=== PATIENT | female | born 1990 | race Caucasian/White ===

== ENCOUNTER 2022-11-09 01:47 | Inpatient (IN) | payer BC ==
[2022-11-09 02:42] VITALS: BMI 34.9
[2022-11-09] MEDS ORDERED: Ondansetron PF 4 MG/2 ML Vial IVP PRN ×3 (03:12→11:46)
[2022-11-09] MEDS ORDERED: Promethazine HCl 25 MG/ML VIAL IM PRN ×3 (03:12→11:46)
[2022-11-09] MEDS ORDERED: Tranexamic Acid 1,000 MG/10 ML VIAL IVP PRN (03:12)
[2022-11-09] MEDS ORDERED: Carboprost 250 MCG/ML AMP IM PRN (03:12)
[2022-11-09] MEDS ORDERED: Misoprostol 200 MCG TAB PR PRN (03:12)
[2022-11-09] MEDS ORDERED: hydrALAZINE 20 MG/ML VIAL SLOW IVP PRN ×2 (03:12→11:46)
[2022-11-09] MEDS ORDERED: Lidocaine 1% (PF) 30 ML VIAL SC PRN (03:12)
[2022-11-09] MEDS ORDERED: Ibuprofen 800 MG TAB PO PRN (03:12)
[2022-11-09] MEDS ORDERED: Penicillin G Potassium 5 MILL.UNITS in Sodium Chloride 0.9% 100 ML IVPB SCH (03:15)
[2022-11-09] MEDS ORDERED: Oxytocin 30 units/NS 500 ML 500 ML IV SCH ×2 (03:15)
[2022-11-09 03:30] LABS: Hematocrit 35.8 % (34.9-44.5); Hemoglobin 11.8 g/dL (12.0-15.5); Mean Corpuscular Hemoglobin 29.1 pg (27.0-33.0); Mean Corpuscular Volume 88.4 fl (81.6-98.3); Mean Platelet Volume 12.2 fl (7.4-10.4); Platelet Count 159 10x3/uL (150-450); RBC Distribution Width 14.4 % (11.5-14.5); Red Blood Cell (RBC) Count 4.05 10x6/uL (3.90-5.03); White Blood Cell (WBC) Count 9.1 10x3/uL (3.5-10.5)
[2022-11-09] MEDS: Lactated Ringer's 1,000 ML IV SCH (03:32)
[2022-11-09] MEDS ORDERED: fentaNYL/Ropivacaine Epidural 100 ML ONE (03:45)
[2022-11-09 03:52] LABS: HBSAg Index 0.15 S/CO (0-0.99); Hep B Surf Ag - L&D Non-Reactive S/CO (NonReactive)
[2022-11-09 03:53] LABS: Syphilis Antibody Nonreactive (Nonreactive); Syphilis Antibody Index 0.04 S/CO (<1.00 Non-Reactive)
[2022-11-09] MEDS ORDERED: Moisturizing Cream (Eucerin) 113 GM JAR TOP PRN (04:47)
[2022-11-09] MEDS ORDERED: Acetaminophen 325 MG TAB PO PRN (04:47)
[2022-11-09] MEDS ORDERED: diphenhydrAMINE 50 MG/ML VIAL IVP PRN (04:47)
[2022-11-09] MEDS ORDERED: Naloxone HCl 0.4 mg/ml Vial IVP PRN ×2 (04:47)
[2022-11-09] MEDS ORDERED: ePHEDrine Sulfate 50 MG/10 ML VIAL SLOW IVP PRN (04:47)
[2022-11-09] MEDS ORDERED: Lactated Ringer's 500 ML IV PRN (04:47)
[2022-11-09] MEDS ORDERED: fentaNYL 2 mcg/Ropivacaine 0.2% Epidural 100 ML CADD EPIDURAL SCH (05:00)
[2022-11-09] MEDS ORDERED: Communication Order-Pharmacy FS SCH (05:00)
[2022-11-09] MEDS ORDERED: Dexmedetomidine 200 MCG/2 ML VIAL ONE (05:01)
[2022-11-09] MEDS: Penicillin G 2.5 MILL.units 2.5 MILL.UNITS in Premix Bag 1 BAG IVPB SCH (07:23)
[2022-11-09] MEDS ORDERED: Bupivacaine 0.25% HCL 30 ML VIAL ONE (08:00)
[2022-11-09] MEDS ORDERED: diphenhydrAMINE 25 MG CAP PO PRN (11:46)
[2022-11-09] MEDS ORDERED: Lanolin Ointment 7 GM TUBE TOP PRN (11:46)
[2022-11-09] MEDS ORDERED: HYDROcodone/Acetaminophen 5/325 mg Tablet PO PRN (11:46)
[2022-11-09] MEDS ORDERED: Benzocaine-Menthol 82.5 ML CAN TOP PRN (11:46)
[2022-11-09] MEDS ORDERED: Boostrix 0.5 ML (Tdap) VIAL (>/=7 yrs of age) IM ONE (11:46)
[2022-11-09] MEDS ORDERED: Milk Of Magnesia 30 ML UDCUP PO PRN (11:46)
[2022-11-09] MEDS ORDERED: Bisacodyl 10 MG SUPP PR PRN (11:46)
[2022-11-09] MEDS ORDERED: Preparation H Ointment 28 GM TUBE PR PRN (11:46)
[2022-11-09] MEDS ORDERED: Docusate 100 MG CAP PO SCH (12:00)
[2022-11-09] MEDS ORDERED: Prenatal Vitamin 1 TAB PO SCH (12:00)
[2022-11-09] MEDS: Docusate 100 MG CAP PO SCH (14:25)
[2022-11-09] MEDS: Ibuprofen 800 MG TAB PO SCH ×2 (14:25→21:28)
[2022-11-09] MEDS: Ferrous Sulfate 325 MG TAB PO SCH (19:34)
[2022-11-10] MEDS: Lactated Ringer's 1,000 ML IV SCH (01:03)
[2022-11-10] MEDS: Penicillin G 2.5 MILL.units 2.5 MILL.UNITS in Premix Bag 1 BAG IVPB SCH (01:03)
[2022-11-10] MEDS: Ibuprofen 800 MG TAB PO SCH (05:03)
[2022-11-10] MEDS: Docusate 100 MG CAP PO SCH (08:26)
[2022-11-10] MEDS: Ferrous Sulfate 325 MG TAB PO SCH (08:26)
[2022-11-10] MEDS ORDERED: Prenatal Vitamin 1 TAB PO SCH (09:00)
[2022-11-10 09:30] VITALS: BP 138/93; TEMP 98
== END 2022-11-10 12:25 | disposition home or self-care (01) | DRG 807 ==
LOC: CSHLD/OP 01:47 → CSHLD 02:41 → CSHPP 11:15
PROVIDERS: ADMIT Student in an Organized Health Care Education/Training Program; ATTEND Student in an Organized Health Care Education/Training Program
PROC: 10E0XZZ Delivery of Products of Conception, External Approach (ICD-10-PCS; principal; 2022-11-09)
PROC: 10907ZC Drainage of Amniotic Fluid, Therapeutic from Products of Conception, Via Natural or Artificial Opening (ICD-10-PCS; 2022-11-09)
DX: O99.824 Streptococcus B carrier state complicating childbirth (principal); Z37.0 Single live birth; Z3A.38 38 weeks gestation of pregnancy; Z90.49 Acquired absence of other specified parts of digestive tract; Z98.890 Other specified postprocedural states; Z79.899 Other long term (current) drug therapy; Z79.82 Long term (current) use of aspirin; Z82.49 Family history of ischemic heart disease and other diseases of the circulatory system
CPT/HCPCS: 51702; 85027; 86780; 86850; 86900; 86901; 87340; 99285; J2540; J2590; J3490; J7120; S0020